=== PATIENT | male | born 1985 | race African-American/Black ===

== ENCOUNTER 2016-08-16 06:24 | Emergency (ER) | payer BC ==
[~2016-08-16] VITALS: Ht 180.3 cm; Wt 78.0 kg
[~2016-08-16 06:24] MED LIST: LORT5TAB PO; Z.0.NO CURRENT MEDS
[2016-08-16 06:26] VITALS: BP 117/69; PULSE 82; RESP 15; TEMP 98.1; O2SAT 98
--- NOTE | 2016-08-16 06:46 | PD ---
HPI Chief Complaint: Cold / Flu Symptoms Time Seen by Provider: 06:40 Travel History International Travel<30 days: No Contact w/Intl Traveler<30days: No Traveled to known affect area: No History of Present Illness HPI Patient comes in complaining of cough, in addition, sore throat, generalized body aches ongoing for 2-3 days. Patient states her when his work is sick. Patient states he took medical for this last night around 8 PM with minimal to no relief of symptoms. Patient states feels he is getting worse. Denies any nausea vomiting, diarrhea pain, shortness of breath, abdominal pain, neck pain, or headaches.. PFSH Past Medical History Asthma: Yes Diminished Hearing: No Social History Alcohol Use: Yes (SOCIAL) Tobacco Use: Yes Substance Use: No Allergies-Medications (Allergen,Severity, Reaction): Coded Allergies: No Known Allergies (Verified , 08/16/16) Reported Meds & Prescriptions Reported Meds & Active Scripts Active No Active Prescriptions or Reported Medications Review of Systems Except as stated in HPI: all other systems reviewed are Neg Physical Exam Narrative GENERAL: Well-developed, well nourished, in no acute distress, and non-ill appearing. SKIN: Warm and dry. HEAD: Atraumatic. Normocephalic. EYES: Pupils equal and round. EOMI. No scleral icterus. No injection or drainage. ENT: No nasal bleeding or discharge. Mucous membranes pink and moist. Tympanic membranes pearly montalvo bilaterally. Posterior pharynx nonerythematous without exudate. Uvula is midline. No tenderness facial sinuses to palpation. NECK: Trachea midline. No cervical lymphadenopathy. Supple. No nuclear rigidity. CARDIOVASCULAR: Regular rate and rhythm. No murmur appreciated. RESPIRATORY: No accessory muscle use. No respiratory distress. Scant wheezing noted on the right. Breath sounds equal bilaterally. MUSCULOSKELETAL: No obvious deformities. No clubbing. No cyanosis. No edema. Full range of motion. NEUROLOGICAL: Awake and alert. No obvious cranial nerve deficits. Motor grossly within normal limits. Normal speech. PSYCHIATRIC: Appropriate mood and affect; insight and judgment normal. Data Data Last Documented VS Vital Signs Date Time Temp Pulse Resp B/P Pulse Ox O2 Delivery O2 Flow Rate FiO2 08/16/16 06:26 98.1 82 15 117/69 98 Room Air Orders Group A Rapid Strep Screen (08/16/16 06:38) Influenzae A/B Antigen (08/16/16 06:38) Chest, Single Ap (08/16/16 ) MDM Medical Decision Making Medical Screen Exam Complete: Yes Emergency Medical Condition: Yes Differential Diagnosis Pneumonia, influenza, bronchitis, or strep infection, strep pharyngitis, other Narrative Course Patient seen and examined. Initial laboratory radiologic studies were ordered. Patient was signed out to Rosalba VARGAS. Please see her documentation for final diagnosis and disposition. Scripts No Active Prescriptions or Reported Meds Nav Wall Aug 16, 2016 06:46
--- NOTE | 2016-08-16 07:22 | RADRPT ---
EXAM DATE/TIME: 08/16/2016 06:55 [facility] COMPARISON: No previous studies available for comparison. INDICATIONS : Congestion with cough and shortness of breath x3 days. MEDICAL HISTORY : None. SURGICAL HISTORY : None. ENCOUNTER: Initial ACUITY: 3 days PAIN SCORE: 0/10 LOCATION: Bilateral chest FINDINGS: The lungs are clear without infiltrate, nodule, or mass. There is no appreciable pleural effusion fo r technique. Heart and mediastinum are unremarkable. CONCLUSION: No acute cardiopulmonary disease. Xin Ruby MD on August 16, 2016 at 7:20 Board Certified Radiologist. This report was verified electronically.
[2016-08-16] MEDS ORDERED: BENZ100 PO (08:05)
[2016-08-16] MEDS ORDERED: OSEL75 PO (08:05)
[2016-08-16] MEDS ORDERED: IBUP800T23 PO (08:05)
[2016-08-16] MEDS ORDERED: MOME17I EACH NARE (08:05)
--- NOTE | 2016-08-16 08:08 | PD ---
Physical Exam Time Seen by Provider: 08:04 Narrative I received report on this patient from Archie Wall PA-C. See his note for initial treatment and evaluation. Data Data Last Documented VS Vital Signs Date Time Temp Pulse Resp B/P Pulse Ox O2 Delivery O2 Flow Rate FiO2 08/16/16 06:26 98.1 82 15 117/69 98 Room Air Orders Group A Rapid Strep Screen (08/16/16 06:38) Influenzae A/B Antigen (08/16/16 06:38) Chest, Single Ap (08/16/16 ) Strep Culture (Group A) (08/16/16 06:50) MDM Medical Record Reviewed: Yes Supervised Visit with DEONDRE: No Narrative Course I received report on this patient from Archie Wall PAC. See his note for initial treatment and evaluation. 0805: Chest x-ray with no acute findings. Rapid strep negative. Influenza positive. Discussed viral illness and symptom management with patient. Tamiflu , Tessalon Perles, Nasonex nasal spray, ibuprofen prescribed for home. Work release note provided. Patient verbalizes understanding and agreement with treatment plan. Patient is medically cleared and stable for discharge. Discussed reasons to return to the emergency department. Instructed patient to follow up with primary care provider. Patient agrees with treatment plan. The patients vital signs are stable and the patient is stable for outpatient follow- up and treatment. Patient discharged home, stable and in no acute distress. Diagnosis Primary Impression: Influenza A Referrals: Primary Care Physician Patient Instructions: General Instructions, Influenza (ED), Safe Use of Cough and Cold Medicines (ED) Departure Forms: Tests/Procedures, Work Release Special Instructions: Do not return to work until you are fever free for 24 hours Additional Instruction: Ibuprofen or Tylenol as directed and as needed to reduce fever; may alternate ibuprofen and Tylenol as needed every 3 hours to minimize fever [id number] cold/flu medications as directed and as needed for symptom management Get plenty of sleep/rest Drink plenty of fluids to prevent dehydration Coleman diet to encourage nutrition such as crackers, fruit, applesauce, toast, soup etc. Use an air humidifier/turn off ceiling fans Follow-up with your primary care provider within 1 day Return immediately to the emergency department with worsening of symptoms Med/Other Pt SpecificInfo: Prescription(s) given Scripts Ibuprofen 800 Mg [id number] Mg PO Q6HR PRN (PAIN) #30 TAB Ref 0 Prov:Shazia Mckeon 08/16/16 Oseltamivir (Tamiflu)75 Mg Cap75 Mg PO BID 5 Days Ref 0 Prov:Shazia Mckeon 08/16/16 Benzonatate (Tessalon Perles)100 Mg [id number] Mg PO TID PRN (COUGH) #20 CAP Ref 0 Prov:Shazia Mckeon 08/16/16 Mometasone Nasal [place] (Nasonex Nasal [place])50 Mcg/Act Naspr2 [place] EACH NARE DAILY PRN (NASAL CONGESTION) #1 BOTTLE Ref 0 Prov:Shazia Mckeon 08/16/16 Disposition: 01 DISCHARGE HOME Condition: Stable Shazia Mckeon Aug 16, 2016 08:08
== END 2016-08-16 08:24 | disposition home or self-care (01) ==
LOC: NEPB 06:24
DX: J09.X2 Influenza due to identified novel influenza A virus with other respiratory manifestations (principal); J02.9 Acute pharyngitis, unspecified; J45.909 Unspecified asthma, uncomplicated; Z72.0 Tobacco use
CPT/HCPCS: 71010; 87081; 87804; 87880; 99283

== ENCOUNTER 2017-11-10 17:55 | Emergency (ER) | payer OTHER, BC ==
[~2017-11-10] VITALS: Ht 180.3 cm; Wt 75.0 kg
[~2017-11-10 17:55] MED LIST changes: +BENZ100 PO; +IBUP1TAB7 PO; -LORT5TAB PO; +MOME17I EACH NARE; +OSEL75 PO; -Z.0.NO CURRENT MEDS
[2017-11-10 18:22] VITALS: BP 112/61; PULSE 72; RESP 16; TEMP 99; O2SAT 98
[2017-11-11] MEDS ORDERED: CYCL10TA PO (23:41)
== END 2017-11-10 20:37 | disposition left against medical advice (07) ==
LOC: NED 17:55
DX: Z04.1 Encounter for examination and observation following transport accident (principal)
CPT/HCPCS: 99281

== ENCOUNTER 2017-11-11 20:05 | Emergency (ER) | payer OTHER, BC ==
[2017-11-11 20:52] VITALS: BP 118/77; PULSE 76; RESP 16; TEMP 98.1; O2SAT 100
[2017-11-11] MEDS ORDERED: CYCLOBENZAPRINE HCL 10 MG TAB PO ONE (22:30)
[2017-11-11] MEDS ORDERED: IBUPROFEN 600 MG TAB PO ONE (22:30)
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
[2017-11-11] MEDS ORDERED: CYCL10TA PO (23:41)
== END 2017-11-12 00:01 | disposition home or self-care (01) ==
LOC: NEPD 20:05
DX: S20.219A Contusion of unspecified front wall of thorax, initial encounter (principal); V49.40XA Driver injured in collision with unspecified motor vehicles in traffic accident, initial encounter
CPT/HCPCS: 71101; 99284